=== PATIENT | female | born 2000 | race Two or more races ===

== ENCOUNTER → 2024-12-15 | Outpatient (CLI) | payer MEDICAID, SELFPAY ==
--- NOTE | 2024-12-15 16:40 | XR_ITS ---
Examination: PA lateral chest 2 views TECHNIQUE: Upright PA lateral chest 2 views Exam date and time: December 15, 2024 1651 hours Comparison December 26, 2006 FINDINGS: Normal heart size No pneumonia or definite cavitary lesion depicted Intact osseous structures IMPRESSION: No pneumonia or cavitary lesion depicted, consider follow-up AP lordotic chest as clinically warranted
== END | disposition home or self-care (01) ==
PROVIDERS: PCP Nurse Practitioner Family; Referring Provider Nurse Practitioner Family; Visit Provider Nurse Practitioner Family
DX: J98.4 Other disorders of lung (principal)
CPT/HCPCS: 71046

== ENCOUNTER → 2025-08-04 | Outpatient (CLI) | payer MEDICAID, SELFPAY ==
--- NOTE | 2025-08-04 10:00 | XR_ITS ---
Examination: Thyroid sonography complete TECHNIQUE: Grayscale sonographic images thyroid lobes Date and time: August 04, 2025 1014 hours INDICATIONS: Abnormal thyroid function tests on laboratory examination one month ago. FINDINGS: Right thyroid 5.6 cm Midpole nodule 8 x 10 mm Isthmus vascular solid nodule 19 x 18 mm Left thyroid 6.1 cm Lower pole vascular nodule 20 x 19 mm IMPRESSION: Thyroid nodules as above Consider ultrasound-guided fine-needle aspiration of the isthmus and left thyroid nodule as clinically warranted
== END | disposition home or self-care (01) ==
LOC: CDIM 09:46
DX: E04.2 Nontoxic multinodular goiter (principal)
CPT/HCPCS: 76536

== ENCOUNTER → 2025-08-08 | Outpatient (CLI) | payer MEDICAID, SELFPAY ==
--- NOTE | 2025-08-08 12:48 | XR_ITS ---
Examination: Ultrasound soft tissue neck TECHNIQUE: Grayscale sonographic images soft tissue neck Date and time: August 08, 2025 1315 hours INDICATIONS: Onset palpable lump in the right neck note is beginning one week ago. FINDINGS: Lymph node at the area concern 13 x 5 x 9 mm IMPRESSION:: Enlarged lymph node right neck as above Consider follow-up CT soft tissue neck post intravenous contrast
== END | disposition home or self-care (01) ==
DX: R59.0 Localized enlarged lymph nodes (principal)
CPT/HCPCS: 76536

== ENCOUNTER 2025-11-04 09:14 | Outpatient (AMB) | payer MEDICAID, SELFPAY ==
[2025-11-04 09:38] VITALS: BP 118/80; PULSE 77; RESP 14; TEMP 36.4; O2SAT 96; BMI 29.2
--- NOTE | 2025-11-04 09:38 | OBCLNT_ITS ---
Vital Signs 11/04/25 09:38 Height 1.6 m Height Method Stated Weight 74.843 kg Weight Measurement Method Standing Scale BMI 29.2 BP 118/80 Blood Pressure Source Automatic Cuff Blood Pressure Location Left Upper Arm Position Sitting Respiration 14 Pulse 77 Pulse Source Monitor Temp 97.6 F Temp Source Oral Pulse Oximetry (%) 96 Oxygen Delivery Method Room Air Allergies/Home Meds Allergies & Medications Allergies bee venom protein (honey bee) Allergy (Severe, Verified 11/04/25 09:39) Anaphylaxis Medication Reconciliation prenat.vits,lolita,[id number] 1 tab PO QDAY 09/09/22 [History Confirmed 11/04/25] Intake Visit Data Collection New Patient or Established: Established Patient (seen at [facility] within 3 years) Reason for Visit:: TRANSFER INITIAL CARE Seen by Clinical Staff ONLY (RN/MA): No 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 Required: No Do You Feel Safe at Home: Yes Authorities Contacted: N/A PCP or OBGYN visit in last 3 months: Yes Hx Now: Yes Are you currently on any form of Control: No Last menstrual period: 08/22/25 Pain Present Currently: No Pain Scale Used: Bhat-Hollins/Numerical Pain scale:: 0 Smoking Status Smoking Status: Never smoker Immunizations Flu Vaccine in the Last 12 Months: Yes Flu Vaccine Exclusion Criteria: Already Received Questionnaires Covid-19 Vaccine Questionnaire Has patient been vacinated for Covid-19 Have you been vacinated for Covid-19: Yes PHQ-9 PHQ-2 Over the last 2 weeks, how often have you been bothered by any of the following problems? 1. Little interest or pleasure in doing things: not at all 2. Feeling down, depressed, or hopeless: not at all Total score: 0 PHQ-9 3. Trouble falling or staying asleep, or sleeping too much: Not at all 4. Feeling tired or having little energy: Not at all 5. Poor appetite or overeating: Not at all 6. Feeling bad about yourself - or that you are a failure or have let yourself or your family down: Not at all 7. Trouble concentrating on things, such as reading the newspaper or watching television: Not at all 8. Moving or speaking so slowly that other people could have noticed? - Or the opposite - being so fidgety or restless that you have been moving around a lot more than usual: not at all 9. Thoughts that you would be better off or of hurting yourself in some way: Not at all Total score: 0 Source: Developed by Drs. Gaurav Forbes, Jessica Spann, Paulie Del Cid and colleagues, with an educational charis from [employer]: [employer]. Depression screen completed yes Social History Living Situation History Marital Status: Lives With: Family Housing: House Tobacco History Smoking Status: Never smoker Second Hand Smoke Exposure: No Alcohol History Alcohol Intake: Former Alcohol Intake Frequency: holidays/special occasions only Domestic Abuse History Do You Feel Safe at Home: Yes History of Present Illness HPI Narrative 25-year-old 3 para 2 for OBI. Patient had her initial workup at [facility]. Last period August 22, 2025. Estimated due date May 29, 2026. Patient previous x 2. Her first was because of distress and then the second was because of the first patient has been seen family practice at [facility] for possible thyroid disease. She states that her TSH was high and then she was screened for Kenny's and that was high as well. Patient has had referral made to endocrine. And she had been scheduled for biopsy and then found she was and had a biopsy. She is not on medications at this time. Patient prefers a female provider. She has a history drinking beer socially. She has had no the . She is taking prenatals. Denies any signs or symptoms of SAB. And she is happy about the . Previous history of irregular. 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: Past Medical History Past Medical History: Yes Hx Neurological Disorders, No Hx Hypothyroidism, No Hx Hyperthyroidism, No Hx Breast Cancer, No Hx Cardiac Disorders, No Hx Cancer, No Hx Blood Disorders, No Hx Gastrointestinal Disorders, No Hx Renal Disease, No Hx Diabetes Mellitus Type 1 and No Hx Diabetes Mellitus Type 2 OB Initial Visit OB Flowsheet OB Flowsheet Initial Weight: Not Recorded Date -?-?-?-?-?-?-?-?-?-?-?-?- EGA Weight BP Alb Glu CTX Pres Fundal ht FHR Mov Dilation Station Effacement Hx Notes Visit Note 11/04/25 -?-?-?-?-?-?-?-?-?-?-?-?- 10w 4d 74.843 kg 118/80 absent unknown 10 145 absent 25-year-old 3 para 2 for OBI. Possible history of hyperthyroid. Patient's TSH was elevated and her screen for Kenny's also elevated. Endocrine appointment pending. Patient also states that she has an ultrasound at OB pending. Denies any leaking, bleeding. Denies movement. NIPT and carrier screen today. Reviewed OB panel. I encouraged patient to go ahead and schedule her appointment with endocrinology. And to follow-up on her ultrasound that was scheduled. Schedule her at [facility] for ultrasound. And schedule with OB next visit. Menstrual History Menstrual reliability: definite Flow: normal Menstrual regularity: regular Monthly: Yes Age at menarche: 14 On control pills at conception: No Associated symptoms (LMP): Reports nausea, vomiting, fatigue and breast tenderness OB History : 3 Para: 2 # of Living Children: 2 Delivery History 1st : Child's name: MIRZA date: 09/25/19 sex: female Gestational age at delivery (weeks): 41 Delivery type: Delivery complications: NONE History of depression before or after : No 2nd : Child's name: GERBER date: 09/11/22 sex: male Gestational age at delivery (weeks): 37 Delivery type: Delivery complications: NONE History of depression before or after : No Infection History & Risk Evaluation History of STDs: none Genetic Screening & History Genetic Screening/Teratology Counseling - Includes patient, baby's father, or anyone in either family with: 1. Patient's age 35 years or older as of estimated date of delivery: No 2. Thalassemia (Colombian, Telugu, Mediterranean, or Background); MCV less than 80: No 3. Neural Tube Defect (Meningomyelocele, Spina Bifida, or Anencephaly): No 4. Congenital Heart Defect: No 5. Down Syndrome: Yes 6. Lb-Sachs (Ashkenazi Tenriism, Cajun, Icelandic Guamanian): No 7. Shawn Disease (Ashkenazi Tenriism): No 8. Familial Dysautonomia (Ashkenazi Tenriism): No 9. Sickle Cell Disease or Trait (): No 10. Hemophilia or other blood disorders: No 11. Muscular Dystrophy: No 12. Cystic Fibrosis: No 13. Rancocas's Chorea: No 14. Mental Retardation/Autism: Yes 15. Other inherited genetic or chromosomal disorder: No 16. Maternal Metabolic Disorder (EG,TYPE 1 Diabetes, PKU): No 17. Patient or baby's father had a child with defects not listed above: No 18. Recurrent loss or a stillbirth: No 19. Medications (including supplements, vitamins, herbs or otc drugs)/illicit/recreational drugs/alcohol since last menstrual period: No 20. Any other: No Infection History 1. Live with someone with TB or exposed to TB: No 2. Rash or viral illness since last menstrual period: No 3. Hepatitis B,C: No Other (see comments) Source: [employer] Review of Systems Review of Systems Systems Reviewed: All systems reviewed, normal except as documented Constitutional Constitutional: Reports fatigue Gastrointestinal Gastrointestinal: Reports nausea and Reports vomiting Endocrine Endocrine: Reports fatigue Exam General Limitations: no limitations General Appearance: alert, in no apparent distress, comfortable, cooperative, healthy appearing, well developed and well groomed Head Head exam: atraumatic, normocephalic and normal inspection Chest Chest inspection: Present normal inspection and symmetric chest wall rise Resp Respiratory exam: Present normal lung sounds bilaterally Card Cardiovascular exam: Present regular rate, normal rhythm and normal heart sounds Abdominal Abdominal exam: Present soft and normal bowel sounds Extremities Extremities exam: Present normal inspection and full ROM Psych Psychiatric exam: Present normal affect and normal mood Skin Skin exam: Present warm, dry, intact and normal color Office Procedures OBC Clinic LOC & Office Proc's Nursing/Assessment Patient Status: Established Patient OB Clinic Nursing Assessment: Medication Reconciliation, Update PMH in EMR and Vital Signs OB Clinic Coordination of Care: Complex Care and Chronic Disease 1-5, Consent,records obtained, informed consent, Education Simp Pt/Fam, 1 Ins Authorization, Lab and Imaging orders, Results/Orders obtained and Staff clarify orders Special Needs: Heart tones Established Patient Charge Established Patient Point Assignment: 150 Established Patient Point Charge: EP Level 4 (120-155) Assessment & Plan Diagnosis / Problem List (1) Encounter for supervision of high risk in second trimester, antepartum: Status: Acute (2) Encounter for maternal care for low transverse scar from previous delivery: Status: Acute Plan Reviewed labs. Schedule NT and anatomy scan at [facility]. NIPT and carrier screen today. Discussed SAB precautions. Patient will follow- up on her referral to endocrinology. And also her dating ultrasound. Increase fluids. And return in 4 weeks with OB Additional Plan Follow Up: 4 Weeks (obc)
== END 2025-11-04 10:12 | disposition home or self-care (01) ==
LOC: HODSOBC 09:14
PROVIDERS: Supervising Provider Advanced Practice Midwife; Visit Provider Advanced Practice Midwife
DX: O09.291 Supervision of pregnancy with other poor reproductive or obstetric history, first trimester (principal); O34.211 Maternal care for low transverse scar from previous cesarean delivery; Z3A.10 10 weeks gestation of pregnancy; Z91.030 Bee allergy status
CPT/HCPCS: 99214; G0463